=== PATIENT | male | born 1975 | race Two or more races ===

== ENCOUNTER 2018-12-17 10:43 | Emergency (ER) | payer OTHER ==
[~2018-12-17] VITALS: Ht 177.8 cm; Wt 77.1 kg
== END 2018-12-17 11:47 | disposition home or self-care (01) ==
LOC: ER 10:43
DX: S05.02XA Injury of conjunctiva and corneal abrasion without foreign body, left eye, initial encounter (principal); W22.8XXA Striking against or struck by other objects, initial encounter; Y93.89 Activity, other specified; Y92.098 Other place in other non-institutional residence as the place of occurrence of the external cause; Y99.8 Other external cause status

== ENCOUNTER 2019-03-11 12:03 | Emergency (ER) | payer OTHER ==
[~2019-03-11] VITALS: Ht 180.3 cm; Wt 79.4 kg
[2019-03-11] MEDS ORDERED: MUCINEX DM ER1 EAC1 PO (18:10)
[2019-03-11] MEDS ORDERED: AIRBORNE EFFER1 EACH PO (18:10)
[2019-03-11] MEDS ORDERED: KETO10TA2 PO (18:14)
[2019-03-11] MEDS ORDERED: TESSALON PERLE100 M1 PO (18:14)
[2019-03-11] MEDS ORDERED: OSEL75CA PO (18:18)
[2019-03-11] MEDS ORDERED: XOFLUZA40 MG PO (18:18)
== END 2019-03-11 18:26 ==
LOC: ER 12:03
DX: J11.1 Influenza due to unidentified influenza virus with other respiratory manifestations (principal); B34.9 Viral infection, unspecified

== ENCOUNTER 2020-04-28 03:38 | Emergency (ER) | payer OTHER ==
[~2020-04-28] VITALS: Ht 180.3 cm; Wt 81.6 kg
[~2020-04-28 03:38] MED LIST: AIRBORNE EFFER1 EACH PO; KETO10TA2 PO; MUCINEX DM ER1 EAC1 PO; OSEL75CA PO; TESSALON PERLE100 M1 PO; XOFLUZA40 MG PO
[2020-04-28] MEDS ORDERED: IBUPROFEN800 MG PO (06:14)
== END 2020-04-28 06:19 | disposition home or self-care (01) ==
LOC: ER 03:38
DX: K04.7 Periapical abscess without sinus (principal); T81.49XA Infection following a procedure, other surgical site, initial encounter; Y83.8 Other surgical procedures as the cause of abnormal reaction of the patient, or of later complication, without mention of misadventure at the time of the procedure